=== PATIENT | female | born 1985 | race Two or more races ===

== ENCOUNTER 2019-08-06 01:40 | Emergency (ER) | payer OTHER ==
[~2019-08-06] VITALS: Ht 152.4 cm; Wt 54.4 kg
[2019-08-06] MEDS ORDERED: MECLIZINE HCL 25 MG TAB PO ONE (03:30)
[2019-08-06 03:45] LABS: Urine Bacteria FEW /hpf (None Seen); Urine Blood 2+ /uL (Negative); Urine Mucus FEW (None Seen); Urine Specific Gravity 1.029 (1.001-1.035); Urine WBC 1 /hpf (0 - 5)
[2019-08-06 04:08] LABS: Basophils # (auto) 0 uL; Basophils % (auto) 0.2 % (0.0-2.0); Eosinophils # (auto) 0 uL; Hematocrit 36.8 % (36.0-46.0); Hemoglobin 12.5 g/dL (12.2-16.2); Lymphocytes # (auto) 0.7 uL; Lymphocytes % (auto) 5.4 % (10.0-50.0); Mean Corpuscular Hemoglobin 31.2 pg (28.0-32.0); Mean Corpuscular Hgb Conc. 34.1 g/dL (32.0-36.0); Mean Corpuscular Volume 91.6 fL (80.0-100.0); Monocytes # (auto) 0.4 uL; Monocytes % (auto) 3.2 % (0.0-12.0); Neutrophils # (auto) 11.9 uL; Neutrophils % (auto) 91.2 % (37.0-80.0); Platelet Count (auto) 252 10^3/uL (140-450); Red Blood Cells 4.02 10^6/uL (4.0-5.20); Red Cell Distribution Width 13.1 % (11.8-14.3)
[2019-08-06 04:24] LABS: Albumin 3.8 g/dL (3.4-5.0); BUN/Creatinine Ratio 18.3; Calcium 8.3 mg/dL (8.5-10.1); Magnesium 1.9 mg/dL (1.6-2.6); Potassium 3.6 mmol/L (3.5-5.1)
[2019-08-06 04:27] LABS: Bilirubin, Total 0.3 mg/dL (0.2-1.0)
[2019-08-06 05:00] VITALS: BP 102/48
== END 2019-08-06 05:50 | disposition home or self-care (01) ==
LOC: ER 01:43
DX: R42 Dizziness and giddiness (principal); R53.1 Weakness; Z88.2 Allergy status to sulfonamides
CPT/HCPCS: 36415; 70450; 80053; 81001; 81025; 83735; 85025; 99284; J8597